=== PATIENT | female | born 1960 | race Two or more races ===

== ENCOUNTER 2018-10-31 06:15 | Day surgery (SDC) | payer OTHER ==
[~2018-10-31 06:15] MED LIST: CLONAZEP PO; COZAAR50 MG PO; LASIX40 MG PO; NOVOLIN N100 UNIT/1; PLAVIX75 MG PO; RESTORIL30 M1 PO; ZOLOFT PO; ZOLOFT100 MG PO; [UNRECOGNIZED DRUG - OTHER] PO
== END 2018-10-31 15:30 | disposition home or self-care (01) ==
LOC: CIR.AMB 06:15
DX: I96 Gangrene, not elsewhere classified (principal)